=== PATIENT | female | born 1995 | race Caucasian/White ===

== ENCOUNTER 2019-01-02 18:41 | Emergency (ER) | payer OTHER ==
[2019-01-02 18:46] VITALS: BP 129/94
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
[2019-01-02] MEDS ORDERED: META800T18 PO (19:15)
== END 2019-01-02 19:23 | disposition home or self-care (01) ==
LOC: ER 19:08
DX: S16.1XXA Strain of muscle, fascia and tendon at neck level, initial encounter (principal); V89.2XXA Person injured in unspecified motor-vehicle accident, traffic, initial encounter
CPT/HCPCS: 99281